=== PATIENT | male | born 1940 | race Caucasian/White ===

== ENCOUNTER → 2016-05-10 | Outpatient (CLI) | payer MEDICARE ==
[~2016-05-10] MED LIST: ACETAMINOPHEN PO; ARICEPT PO; ASPIRIN PO; COLACE PO; DICYCLOMINE HCL20 MG PO; EFFEXOR XR PO; FLOMAX0.4 MG PO; HEART PILL; HYPERTENSION MED; LASIX PO; LISINOPRIL PO; LISINOPRIL20 MG; LOPID600 MG PO; LOPRESSOR PO; METOPROLOL TART25 MG; NERVE PILL; OMEPRAZOLE20 M2; PROTONIX PO; VENLAFAXINE HCL75 M1; WALGREENS PHARMACY; ZOCOR PO; ZYPREXA PO
--- NOTE | ~2016-05-10 | US5 ---
[facility] A Service of [facility] & [facility] RADIOLOGY TEXT RESULTS PATIENT: JOHN PELAYO LOCATION: [facility]US : 42 UNIT #: [id number] AGE: [address]: Es Ibanez MD SEX: M ORDER DR: [id number] [place] [id number] O MR#: [id number] Acc #: [id number] NAME: JOHN PELAYO : 1940 SEX: M STUDY DATE/TIME: 05/10/2016 9:58 UNIT: [facility] ROOM: STUDY DESCRIPTION: US Abdominal Complete Attending Physician: Es Ibanez M.D. Referring Physician: Es Ibanez M.D. Ordering Physician: Es Ibanez M.D. Primary Care Physician: Es Ibanez M.D. MEDICAL IMAGING REPORT This report is preliminary unless electronic signature is present. EXAM Renal ultrasound, 05/10/2016. HISTORY Acute renal insufficiency, abnormal renal function tests performed 1 week ago with elevated creatinine of 1.35 and abnormally elevated BUN of 35. FINDINGS The right kidney measures 10.4 cm while the left kidney measures 10.5 cm in longitudinal dimensions. There is no evidence of hydronephrosis or nephrolithiasis. There is a 5 mm cyst on the left kidney. No solid mass lesions are identified. There is normal renal cortical echogenicity. Images of the bladder are normal. IMPRESSION 1. Small left renal cyst. Otherwise, negative renal ultrasound. 2. Images of the bladder are normal. Dictated by... Sergio Dawson M.D. THIS IS AN ELECTRONICALLY VERIFIED REPORT Sergio Dawson M.D. at 05/11/2016 8:11 AM KALYANI/nica TD: 05/10/2016 12:27 JOB #: [id number] MEDICAL IMAGING REPORT Page 1 of 1
== END | disposition home or self-care (01) ==
LOC: SGUS 09:30
DX: R94.4 Abnormal results of kidney function studies (principal); N28.1 Cyst of kidney, acquired
CPT/HCPCS: 76700

== ENCOUNTER → 2016-09-11 | Outpatient (CLI) | payer OTHER ==
--- NOTE | ~2016-09-11 | HM ---
Unit #: [id number] #: [id number] Patient: JOHN PELAYO [id number] [address] [place], [place] [address] [id number] O MR#: [id number] NAME: JOHN PELAYO : 1940 SEX: M STUDY DATE/TIME: UNIT: [facility] ROOM: STUDY DESCRIPTION: Holter Monitor Attending Physician: Es Ibanez M.D. Referring Physician: Es Ibanez M.D. Primary Care Physician: Es Ibanez M.D. CARDIOLOGY REPORT EXAM Holter Monitor DATE APPLIED 09/11/2016 DATE SCANNED 09/18/[address] Ibanez READ BY Dr. Chace Ruiz INDICATION Bradycardia. COMMENTS 1. Underlying rhythm is normal sinus with first degree AV block. QRS duration is normal. 2. Average heart rate is 60 beats per minute with a minimum recorded heart rate of 43 and maximum recorded heart rate of 93 beats per minute. 3. No significant bradyarrhythmia is noted. 4. There are frequent premature ventricular contractions. 1050 isolated PVCs were noted which are multifocal in origin and multiform. There were 24 premature ventricular couplets. 5. At 9:13 p.m., there is a three beat run of ventricular rhythm at a rate of 66 beats per minute spontaneously converting to normal sinus rhythm. No sustained ventricular tachycardia is noted. 6. 75 isolated PACs were noted with three premature atrial couplets. There is a 7 beat run of supraventricular tachycardia at a rate of 100 per minute that appears to be accelerated junctional tachycardia, spontaneously reverting back to normal sinus rhythm without intervening bradycardia. 7. There is no significant slowing of the heart rate, AV robert block, sinus arrest or sinus pause. 8. Patient did not report any symptoms or maintain an activity diary. Unit #: [id number] #: [id number] Patient: JOHN PELAYO Dictated by... Byron RitterU/ruba TD: 09/23/2016 08:18 JOB #: [id number] CARDIOLOGY REPORT Page 1 of 1 X Chace Ruiz MD [facility]
== END | disposition home or self-care (01) ==
LOC: CECH 10:09 → CEKG 11:45
DX: R00.1 Bradycardia, unspecified (principal); R00.8 Other abnormalities of heart beat; I51.7 Cardiomegaly; I50.30 Unspecified diastolic (congestive) heart failure; I08.3 Combined rheumatic disorders of mitral, aortic and tricuspid valves; I49.1 Atrial premature depolarization; I49.3 Ventricular premature depolarization; I44.0 Atrioventricular block, first degree
CPT/HCPCS: 93225; 93226; 93306